=== PATIENT | male | born 1970 | race Caucasian/White ===

== ENCOUNTER 2017-03-02 04:28 | Emergency (ER) | payer OTHER ==
[~2017-03-02] VITALS: Ht 175.3 cm; Wt 164.2 kg
[~2017-03-02 04:28] MED LIST: AMOXICILLIN500 MG PO; BACTRIM DS 8001 TAB PO; BACTROBAN OINT.30 GM TOP; DILAUDID2 MG PO; DOXYCYCLINE100 M3 PO; LYRICA75 MG PO; MEDROL DOSEPAK1 PAC PO; MOTRIN800 MG PO; PERCOCET 325 MG1 TA2 PO; PREDNISONE 20MG20 MG PO; VALTREX1 GM PO
--- NOTE | 2017-03-02 04:55 | ED GI/GU/ABDOMINAL COMPLAINT ---
History of Present Illness General Chief Complaint: Abdominal Pain/Flank Pain Stated Complaint: ?GALLSTONES Source: patient Exam Limitations: no limitations Vital Signs & Intake/Output Vital Signs & Intake/Output Vital Signs Date Time Temp Pulse Resp B/P B/P Pulse O2 O2 Flow FiO2 Mean Ox Delivery Rate 03/02 0839 98.4 82 18 167/80 96 Room Air 03/02 0650 97.5 84 18 140/105 95 Room Air 03/02 0517 97.3 96 20 172/108 96 Room Air 03/02 0503 98 Room Air Allergies Coded Allergies: meperidine (From DEMEROL) (UNKNOWN 03/02/17) morphine (HIVES 03/02/17) Triage Nurses Notes Reviewed? yes Onset: Gradual Duration: week(s):, waxing and waning Timing: recent history Quality/Severity: burning, cramping Location: suprapubic Radiation: back Activities at Onset: none Prior Abdominal Problems: similar symptoms Modifying Factors: Worsens With: palpation. Associated Symptoms: testicular pain HPI: 47 yo gentleman presents with abdominal pain, intermittent, for the past 8 months. He was recently diagonised with an epididymitis, and was placed on cipro on 02/25. He also received a testicular u/s and non contrast ct scan. He was told, "your pain is probably from gall stones." He notes that he has intermittent pain, "It started in my stomach but then shoots down to my testicles... it also radiates to my back sometimes." Associated with nausea, occasional vomiting, but no dysuria. He is otherwise well. (Annette ANGEL,Marcelino Jean Baptiste) Reconcile Medications Oxycodone HCl/Acetaminophen (Percocet 5-325 MG Tablet) 5 MG-325 MG TABLET 1 TAB PO BID BREAKTHROUGH PAIN (Shayna ANGEL,Beverly) Past History Travel History Traveled to [place] past 21 day No Medical History Any Pertinent Medical History? 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 No (Annette ANGEL,Marcelino Jean Baptiste) Review of Systems Review of Systems Constitutional: Reports: no symptoms. EENTM: Reports: no symptoms. Respiratory: Reports: no symptoms. Cardiovascular: Reports: no symptoms. GI: Reports: no symptoms. Genitourinary: Reports: no symptoms. Musculoskeletal: Reports: no symptoms. Skin: Reports: no symptoms. Neurological/Psychological: Reports: no symptoms. Hematologic/Endocrine: Reports: no symptoms. Immunologic/Allergic: Reports: no symptoms. All Other Systems: Reviewed and Negative (Annette ANGEL,Marcelino Jean Baptiste) Physical Exam Physical Exam General Appearance: well developed/nourished, mild distress Head: atraumatic, normal appearance, active bleeding, evidence of injury Eyes: Bilateral: normal appearance, PERRL, EOMI. Ears, Nose, Throat, Mouth: hearing grossly normal, dental injury, moist mucous membrane Neck: normal inspection, supple, full range of motion Respiratory: normal breath sounds, chest non-tender, no respiratory distress, quiet respiration, lungs clear Cardiovascular: regular rate/rhythm Gastrointestinal: normal bowel sounds, soft, mild-moderate ruq tenderness to palpation. Male Genitals: normal genitalia, normal prostate, hernia, normal cremaster reflex, normal testicular lie. no obvious torsion, no foca shayne Back: normal inspection, normal range of motion Extremities: normal range of motion Neurologic/Psych: no motor/sensory deficits, awake, alert, oriented x 3 Skin: intact, normal color, warm/dry Core Measures ACS in differential dx? No Sepsis Present: No Sepsis Focused Exam Completed? No (Annette ANGEL,Marcelino Jean Baptiste) Progress Differential Diagnosis: kidney stones, biliary colic, epididymytis vs other. Plan of Care: Orders Procedure Date/time Status URINALYSIS 03/02 0505 Complete TROPONIN LEVEL 03/02 454 Complete LIPASE 03/02 454 Complete HEPATIC FUNCTION PANEL 03/02 454 Complete CBC WITHOUT DIFFERENTIAL 03/02 454 Complete BASIC METABOLIC PANEL 03/02 454 Complete AMYLASE 03/02 454 Complete EKG 03/02 454 Active Laboratory Tests 03/02/17 0548: Anion Gap 14, Estimated GFR > 60, BUN/Creatinine Ratio 27.1 H, Glucose 103 H, Calcium 9.1, Total Bilirubin 0.7, Direct Bilirubin 0.1, AST 29, ALT 53, Alkaline Phosphatase 66, Troponin I 0.03, Total Protein 7.0, Albumin 4.2, Amylase 69, Lipase 50, CBC w Diff NO MAN DIFF REQ, RBC 5.30, MCV 85.2, MCH 27.9, RDW 13.9, MPV 8.2, Gran % 53.6, Lymphocytes % 33.0, Monocytes % 8.1, Eosinophils % 4.9, Basophils % 0.4, Absolute Granulocytes 3.9, Absolute Lymphocytes 2.4, Absolute Monocytes 0.6, Absolute Eosinophils 0.4, Absolute Basophils 0, PUBS MCHC 32.7 L 03/02/17 0506: Urine Color YEL, Urine Clarity CLEAR, Urine pH 6.0, Ur Specific [address] >= 1.030 , Urine Protein NEG, Urine Ketones NEG, Urine Nitrite NEG, Urine Bilirubin NEG, Urine Urobilinogen 0.2, Ur Leukocyte Esterase NEG, Ur Microscopic EXAM NOT REQUIRED, Urine Hemoglobin NEG, Urine Glucose NEG 7 AM PATIENT SIGNED OUT TO ME , PENDING RADIOGRAPHIC STUDIES. 9:11 AM U/S RESULTS D/W PATIENT. CT RESULTS PENDING. CT RESULTS D/W PATIENT. REQUESTING SOMETHING FOR PAIN AT NIGHT. HE STATES HE IS NOW FOLLOWING UP WITH DR AGARWAL BECAUSE HE FEELS HE IS NOT GETTING BETTER. U/S RESULTS REVIEWED AGAIN. (Shayna ANGEL,Beverly) Diagnostic Imaging: Viewed by Me: Radiology Read, CT Scan. Discussed w/RAD: Radiology Read, CT Scan. Radiology Impression: PATIENT: DELFIN PHIPPS PRESENT AGE: 47 PATIENT ACCOUNT NO: [id number] : 70 LOCATION: [facility].CT ORDERING PHYSICIAN: Roel Porter MD SERVICE DATE: 02/25/17 EXAM TYPE: US - US- TESTICULAR EXAMINATION: US SCROTUM CLINICAL INFORMATION: Hematuria, right testicular pain. COMPARISON: CT abdomen and pelvis from the same day. TECHNIQUE: A sonogram of the scrotum was performed assessing garza-scale appearance and color Doppler flow. Spectral analysis and Doppler interrogation was performed. FINDINGS: RIGHT: Right testicle measures 4.2 x 2.5 x 3.2 cm, volume 23.9 mL. Parenchymal echotexture is normal. No focal testicular parenchymal lesions are visualized. Normal symmetric intratesticular flow is visualized. Right epididymal head is normal in size. 3 x 2 x 2 mm right epididymal head cyst. No right hydrocele or varicocele is seen. LEFT: Left testicle measures 4.8 x 2.5 x 3.9 cm, volume 33.2 mL. Parenchymal echotexture is normal. No focal testicular parenchymal lesions are visualized. Normal symmetric intratesticular flow is visualized. Left epididymal head is normal in size. No left hydrocele or varicocele is seen. IMPRESSION: Unremarkable scrotal ultrasound. DICTATED BY: Christopher Donohue MD DATE/TIME DICTATED:02/25/171242 MANAGER REIMBURSEMENT: GALE DATE/TIME TRANSCRIBED:02/25/171242 CONFIDENTIAL, DO NOT COPY WITHOUT APPROPRIATE AUTHORIZATION. <Electronically signed in Other Vendor System> SIGNED BY: Christopher Donohue MD 02/25/17 1347, PATIENT: DELFIN PHIPPS PRESENT AGE: 47 PATIENT ACCOUNT NO: [id number] : 70 LOCATION: [facility] ORDERING PHYSICIAN: Roel Porter MD SERVICE DATE: 02/25/17-1106 EXAM TYPE: CAT - CT ABD & PELVIS W/O IV CONTRAS EXAMINATION: CT ABDOMEN AND PELVIS WITHOUT CONTRAST CLINICAL INFORMATION: Hematuria, right testicular pain, right colic. COMPARISON: None. TECHNIQUE: Multidetector volumetric imaging was performed from the superior aspect of the liver through the pubic symphysis. Sagittal and coronal reformatted images were obtained on the technologist's workstation. DLP: 1911.52 mGy-cm. FINDINGS: LUNG BASES: The visualized lung bases are unremarkable. LIVER, GALLBLADDER, AND BILIARY TREE: The noncontrast liver is normal in size, shape, and attenuation. No focal hepatic lesion or biliary ductal dilatation is present. There are radiopaque gallstones within the gallbladder. No gallbladder wall thickening or pericholecystic fluid appreciated. PANCREAS: Unremarkable. SPLEEN: Unremarkable. ADRENAL GLANDS: Unremarkable. KIDNEYS AND URETERS: The noncontrast enhanced kidneys are normal in size, shape, and attenuation. No hydronephrosis, hydroureter, or calculi seen. No perinephric stranding. BLADDER: The partially distended bladder is unremarkable. No bladder calculi are identified. GASTROINTESTINAL TRACT: The small and large bowel are unremarkable. The appendix is unremarkable. ABDOMINAL WALL: No significant hernia is appreciated. LYMPH NODES: Normal. VASCULAR: Unremarkable. PELVIC VISCERA: The prostate and seminal vesicles are unremarkable. OSSEOUS STRUCTURES: No destructive bony lesions. Mild degenerative changes in the visualized thoracal lumbar spine. IMPRESSION: 1. Cholelithiasis with no evidence of acute cholecystitis. 2. Unremarkable noncontrast-enhanced CT appearance of the kidneys. No hydronephrosis or renal calculi are appreciated. DICTATED BY: Christopher Donohue MD DATE/TIME DICTATED:1213 MANAGER REIMBURSEMENT:GALE DATE/TIME TRANSCRIBED:02/25/171213 CONFIDENTIAL, DO NOT COPY WITHOUT APPROPRIATE AUTHORIZATION. <Electronically signed in Other Vendor System> SIGNED BY: Christopher Doonhue MD 02/25/17 1331 Initial ED EKG: LVH, NSR, NO ACUTE CHANGES Hand-Off Endorsed To: Beverly Corral MD Endorsed Time: 0700 Pending: CT, labs, ultrasound (Annette ANGEL,Marcelino Jean Baptiste) Diagnostic Imaging: Viewed by Me: CT Scan, Ultrasound. Discussed w/RAD: CT Scan, Ultrasound. Radiology Impression: PATIENT: DELFIN PHIPPS PRESENT AGE: 47 PATIENT ACCOUNT NO: [id number] : 70 LOCATION: [facility].CT ORDERING PHYSICIAN: Roel Porter MD SERVICE DATE: 02/25/17 EXAM TYPE: US - US- TESTICULAR EXAMINATION: US SCROTUM CLINICAL INFORMATION: Hematuria, right testicular pain. COMPARISON: CT abdomen and pelvis from the same day. TECHNIQUE: A sonogram of the scrotum was performed assessing garza-scale appearance and color Doppler flow. Spectral analysis and Doppler interrogation was performed. FINDINGS: RIGHT: Right testicle measures 4.2 x 2.5 x 3.2 cm, volume 23.9 mL. Parenchymal echotexture is normal. No focal testicular parenchymal lesions are visualized. Normal symmetric intratesticular flow is visualized. Right epididymal head is normal in size. 3 x 2 x 2 mm right epididymal head cyst. No right hydrocele or varicocele is seen. LEFT: Left testicle measures 4.8 x 2.5 x 3.9 cm, volume 33.2 mL. Parenchymal echotexture is normal. No focal testicular parenchymal lesions are visualized. Normal symmetric intratesticular flow is visualized. Left epididymal head is normal in size. No left hydrocele or varicocele is seen. IMPRESSION: Unremarkable scrotal ultrasound. DICTATED BY: Christopher Donohue MD DATE/TIME DICTATED:02/25/171242 MANAGER REIMBURSEMENT: GALE DATE/TIME TRANSCRIBED:02/25/171242 CONFIDENTIAL, DO NOT COPY WITHOUT APPROPRIATE AUTHORIZATION. <Electronically signed in Other Vendor System> SIGNED BY: Christopher Donohue MD 02/25/17 1347, PATIENT: DELFIN PHIPPS PRESENT AGE: 47 PATIENT ACCOUNT NO: [id number] : 70 LOCATION: ER ORDERING PHYSICIAN: Marcelino Bryant MD SERVICE DATE: 03/02/17 EXAM TYPE: US - US-LIMITED ABDOMEN EXAMINATION: US ABDOMEN LIMITED CLINICAL INFORMATION: Right upper quadrant pain. COMPARISON: CT abdomen pelvis 02/25/2017 TECHNIQUE: Real-time imaging of the right upper quadrant abdominal viscera. FINDINGS: PANCREAS: Obscured by bowel gas LIVER: liver demonstrates increased echogenicity consistent with fatty infiltration. No focal masses seen and no bile duct dilatation is appreciated but visualization is limited by body habitus GALLBLADDER: Gallstones are present some of which are mobile. There are nonmobile stones within The gallbladder. The gallbladder wall is 2 mm thick. No pericholecystic fluid collections are seen. The patient is not tender over the gallbladder. COMMON BILE DUCT: Normal in caliber measuring 0.3 cm in diameter. RIGHT KIDNEY: No hydronephrosis. No renal calculi or focal parenchymal lesions. The kidney measures 13.6 cm in maximum dimension. FREE FLUID: None. IMPRESSION: Technically limited study with suboptimal visualization of liver and pancreas. There is however: 1. Hepatic steatosis 2. Cholelithiasis as described above DICTATED BY: Kenney Marcum MD DATE/TIME DICTATED:03/02/17841 MANAGER REIMBURSEMENT:GALE DATE/TIME TRANSCRIBED:03/02/17841 CONFIDENTIAL, DO NOT COPY WITHOUT APPROPRIATE AUTHORIZATION. <Electronically signed in Other Vendor System> SIGNED BY: Kenney Marcum MD 03/02/17 0848, PATIENT: DELFIN PHIPPS PRESENT AGE: 47 PATIENT ACCOUNT NO: [id number] : 70 LOCATION: [facility] ORDERING PHYSICIAN: Marcelino Bryant MD SERVICE DATE: 03/02/17 EXAM TYPE: US - US-TESTICULAR EXAMINATION: US SCROTUM CLINICAL INFORMATION: Scrotal pain. COMPARISON: Scrotal ultrasound dated 02/25/2017. TECHNIQUE: A sonogram of the scrotum was performed assessing garza-scale appearance and color Doppler flow. Spectral analysis and Doppler interrogation was performed. FINDINGS: RIGHT: Right testicle measures 4.6 x 1.9 x 3.0 cm, volume 18.6 mL. Parenchymal echotexture is normal. No focal testicular parenchymal lesions are visualized. Normal symmetric intratesticular flow is visualized. Right epididymal head is normal in size, small epididymal cyst is present within the epididymal head measuring measuring 0.3 x 0.2 x 0.3 cm in size. No right hydrocele or varicocele is seen. LEFT: Left testicle measures 5.3 x 2.2 x 3.6 cm, volume 29.8 mL. Parenchymal echotexture is normal. No focal testicular parenchymal lesions are visualized. Normal symmetric intratesticular flow is visualized. Left epididymal head is normal in size. No left hydrocele or varicocele is seen. IMPRESSION: 1. Small right epididymal cyst. 2. No acute findings, specifically, there is normal symmetric bilateral arterial and venous flow in both left and right testes with no evidence of testicular torsion at this time. No significant interval change compared to the recent study of 02/25/2017. DICTATED BY: Robyn Elizalde MD DATE/TIME DICTATED :03/02/17837 MANAGER REIMBURSEMENT:GALE DATE/TIME TRANSCRIBED:03/02/17837 CONFIDENTIAL, DO NOT COPY WITHOUT APPROPRIATE AUTHORIZATION. < Electronically signed in Other Vendor System> SIGNED BY: Robyn Elizalde MD 03/02/17 0846, PATIENT: DELFIN PHIPPS PRESENT AGE: 47 PATIENT ACCOUNT NO: [id number] : 70 LOCATION: [facility] ORDERING PHYSICIAN: Marcelino Bryant MD SERVICE DATE: 03/02/17 EXAM TYPE: CAT - CT ABD & PELVIS W IV CONTRAST EXAMINATION: CT ABDOMEN AND PELVIS WITH CONTRAST CLINICAL INFORMATION: Right upper quadrant pain. COMPARISON : Ultrasound earlier today and CT abdomen and pelvis dated 02/25/2017. TECHNIQUE : Multidetector volumetric imaging was performed of the abdomen and pelvis following IV administration of 95 mL of Omnipaque 300 intravenous contrast. Sagittal and coronal reformatted images were obtained on the technologist's workstation. DLP: 1775.42 mGy-cm FINDINGS: LUNG BASES: The visualized lung bases are unremarkable. LIVER, GALLBLADDER, AND BILIARY TREE: The liver is normal in size, shape, and attenuation. No focal hepatic lesion or biliary ductal dilatation is present. The gallbladder contains at least 4 large gallstones. No gallbladder wall thickening or pericholecystic fluid collections are seen. PANCREAS: Unremarkable. SPLEEN: Unremarkable. ADRENAL GLANDS: Unremarkable. KIDNEYS AND URETERS: The kidneys are normal in size, shape, and attenuation. No hydronephrosis, hydroureter, or calculi seen. No perinephric stranding. BLADDER: Unremarkable. GASTROINTESTINAL TRACT: The small and large bowel are unremarkable. The appendix is unremarkable. ABDOMINAL WALL: No significant hernia is appreciated. LYMPH NODES: Normal. VASCULAR: Unremarkable. PELVIC VISCERA: The seminal vesicles and prostate appear unremarkable. Some small calcifications are noted in the prostate. OSSEOUS STRUCTURES: Degenerative changes are noted in the lower thoracic spine. IMPRESSION: Cholelithiasis without evidence of cholecystitis. DICTATED BY: Kenney Marcum MD DATE/TIME DICTATED:03/02/17844 MANAGER REIMBURSEMENT:GALE DATE/TIME TRANSCRIBED:844 CONFIDENTIAL, DO NOT COPY WITHOUT APPROPRIATE AUTHORIZATION. < Electronically signed in Other Vendor System> SIGNED BY: Kenney Marcum MD 03/02/17 0943 (Beverly Corral MD) Departure Departure Condition: Stable Departure Forms: Customer Survey General Discharge Information (Annette ANGEL,Marcelino Jean Baptiste) Departure Time of Disposition: 938 Disposition: HOME OR SELF CARE Clinical Impression Primary Impression: Cholelithiasis Referrals: James ANGEL,Esteban Christianson MD,Sol[place] (PCP/Family) Sam ANGEL,Jordan Sandra Additional Instructions: CONTINUE YOUR ANTIBIOTIC COURSE AND FOLLOW UP WITH DR PORTER IF YOUR SYMPTOMS HAVE NOT RESOLVED FOLLOW UP WITH DR WHEELER REGARDING YOUR GALLBLADDER STONES RETURN TO THE ER FOR ANY CHANGING OR WORSENING SYMPTOMS Prescriptions: Current Visit Scripts Oxycodone HCl/Acetaminophen (Percocet 5-325 MG Tablet) 1 TAB PO BID #10 TAB (Beverly Corral MD)
[2017-03-02 05:58] LABS: ABSOLUTE BASOPHIL COUNT 0 /CUMM (0.0-0.2); ABSOLUTE EOSINOPHIL COUNT 0.4 /CUMM (0.0-0.7); ABSOLUTE GRANULOCYTE CT 3.9 /CUMM (1.4-6.5); ABSOLUTE LYMPH COUNT 2.4 /CUMM (1.2-3.4); ABSOLUTE MONOCYTE COUNT 0.6 /CUMM (0.10-0.60); BASOPHIL % 0.4 % (0.0-2.0); EOSINOPHIL % 4.9 % (0-5); GRANULOCYTE % 53.6 % (42.2-75.2); HEMATOCRIT 45.2 % (42-52); MEAN CORPUSCULAR HGB 27.9 PG (27.0-31.0); MEAN CORPUSCULAR HGB CONC 32.7 G/DL (33.0-37.0); MEAN CORPUSCULAR VOLUME 85.2 FL (80.0-94.0); MEAN PLATELET VOLUME 8.2 FL (7.4-10.4); PLATELET COUNT 233 /CUMM (130-400); RBC DISTRIBUTION WIDTH 13.9 % (11.5-14.5); WHITE BLOOD CELL COUNT 7.3 /CUMM (4.8-10.8)
[2017-03-02 08:39] VITALS: BP 167/80
--- NOTE | 2017-03-02 08:46 | ULTRASOUND REPORT ---
EXAMINATION: US SCROTUM CLINICAL INFORMATION: Scrotal pain. COMPARISON: Scrotal ultrasound dated 02/25/2017. TECHNIQUE: A sonogram of the scrotum was performed assessing garza-scale appearance and color Doppler flow. Spectral analysis and Doppler interrogation was performed. FINDINGS: RIGHT: Right testicle measures 4.6 x 1.9 x 3.0 cm, volume 18.6 mL. Parenchymal echotexture is normal. No focal testicular parenchymal lesions are visualized. Normal symmetric intratesticular flow is visualized. Right epididymal head is normal in size, small epididymal cyst is present within the epididymal head measuring measuring 0.3 x 0.2 x 0.3 cm in size. No right hydrocele or varicocele is seen. LEFT: Left testicle measures 5.3 x 2.2 x 3.6 cm, volume 29.8 mL. Parenchymal echotexture is normal. No focal testicular parenchymal lesions are visualized. Normal symmetric intratesticular flow is visualized. Left epididymal head is normal in size. No left hydrocele or varicocele is seen. IMPRESSION: 1. Small right epididymal cyst. 2. No acute findings, specifically, there is normal symmetric bilateral arterial and venous flow in both left and right testes with no evidence of testicular torsion at this time. No significant interval change compared to the recent study of 02/25/2017.
--- NOTE | 2017-03-02 08:48 | ULTRASOUND REPORT ---
EXAMINATION: US ABDOMEN LIMITED CLINICAL INFORMATION: Right upper quadrant pain. COMPARISON: CT abdomen pelvis 02/25/2017 TECHNIQUE: Real-time imaging of the right upper quadrant abdominal viscera. FINDINGS: PANCREAS: Obscured by bowel gas LIVER: liver demonstrates increased echogenicity consistent with fatty infiltration. No focal masses seen and no bile duct dilatation is appreciated but visualization is limited by body habitus GALLBLADDER: Gallstones are present some of which are mobile. There are nonmobile stones within The gallbladder. The gallbladder wall is 2 mm thick. No pericholecystic fluid collections are seen. The patient is not tender over the gallbladder. COMMON BILE DUCT: Normal in caliber measuring 0.3 cm in diameter. RIGHT KIDNEY: No hydronephrosis. No renal calculi or focal parenchymal lesions. The kidney measures 13.6 cm in maximum dimension. FREE FLUID: None. IMPRESSION: Technically limited study with suboptimal visualization of liver and pancreas. There is however: 1. Hepatic steatosis 2. Cholelithiasis as described above
--- NOTE | 2017-03-02 09:43 | CT SCAN REPORT ---
EXAMINATION: CT ABDOMEN AND PELVIS WITH CONTRAST CLINICAL INFORMATION: Right upper quadrant pain. COMPARISON: Ultrasound earlier today and CT abdomen and pelvis dated 02/25/2017. TECHNIQUE: Multidetector volumetric imaging was performed of the abdomen and pelvis following IV administration of 95 mL of Omnipaque 300 intravenous contrast. Sagittal and coronal reformatted images were obtained on the technologist's workstation. DLP: 1775.42 mGy-cm FINDINGS: LUNG BASES: The visualized lung bases are unremarkable. LIVER, GALLBLADDER, AND BILIARY TREE: The liver is normal in size, shape, and attenuation. No focal hepatic lesion or biliary ductal dilatation is present. The gallbladder contains at least 4 large gallstones. No gallbladder wall thickening or pericholecystic fluid collections are seen. PANCREAS: Unremarkable. SPLEEN: Unremarkable. ADRENAL GLANDS: Unremarkable. KIDNEYS AND URETERS: The kidneys are normal in size, shape, and attenuation. No hydronephrosis, hydroureter, or calculi seen. No perinephric stranding. BLADDER: Unremarkable. GASTROINTESTINAL TRACT: The small and large bowel are unremarkable. The appendix is unremarkable. ABDOMINAL WALL: No significant hernia is appreciated. LYMPH NODES: Normal. VASCULAR: Unremarkable. PELVIC VISCERA: The seminal vesicles and prostate appear unremarkable. Some small calcifications are noted in the prostate. OSSEOUS STRUCTURES: Degenerative changes are noted in the lower thoracic spine. IMPRESSION: Cholelithiasis without evidence of cholecystitis.
[2017-03-02] MEDS ORDERED: PERCOCET 5-3251 EACH PO (09:48)
== END 2017-03-02 09:43 ==
LOC: ERH
PROVIDERS: Pediatrics
DX: K80.20 Calculus of gallbladder without cholecystitis without obstruction (principal)
CPT/HCPCS: 74177; 81003; 93005; 93010; 96361; 96374; 96375; J1885; J2405